=== PATIENT | female | born 1960 ===

== ENCOUNTER 2023-11-21 12:54 | Outpatient (AMB) | payer BC, SELFPAY ==
--- NOTE | 2023-11-21 12:58 | HO.SPINEOV ---
Vital Signs 11/21/23 13:02 Height 5 ft 8 in Weight 150 lb BMI 22.8 Intake Visit Reasons: cervical stenosis Intake Note: Ms. Wilkinson is here today c/o neck pain. [employer] Required: No Allergies propofol Allergy (Unknown, Verified 11/21/23 13:03) Unknown Physical Exam Vital Signs: BMI result Body Mass Index 22.8 Assessment & Plan Assessment & Plan (1) Pain in both forearms: Code(s): M79.632 - Pain in left forearm; M79.631 - Pain in right forearm Category: Medical Plan Dear colleague Thank you for referring Josi Stephenson to the office today with a chief complaint of burning arms. HPI: This 62-year-old female developed rather acute tingling that started on the right thumb and palm and then progressive both forearms and elbow areas the symptoms started in February of 2023. The areas are sensitive to pressure touch and has a constant burning and stinging sensations. The symptoms disturb her sleep. She recently had an asthma exacerbation and used prednisone which improved her symptoms. Currently they are returning after discontinuing the prednisone. In 2009 she developed acute numbness and weakness in her left arm that lasted for approximately 2 years and then resolved. PMH: Asthma, hypercholesterolemia, GERD Medications: Albuterol fluticasone, omeprazole, Restasis, rosuvastatin 10, diltiazem, Symbicort Allergies: Propofol Social history: Physical Exam: Pleasant female. Cranial nerves are intact. Motor exam is intact. She has subjective dysesthesias on the ventral side of her elbows. Normal reflexia. No pathological reflexes Radiological Studies: MRI done at [facility] on 07/12/2023 shows no spinal cord compression. There are diffuse mild degenerative changes causing multilevel foraminal stenosis Impression/Plan: This patient is suffering from this is dysesthesia of the bilateral arms, read her right side is more affected than the left side. I do not see a surgical cause for this on the cervical MRI. I referred her back to the neurologist. Thank you for allowing me to participate in your patients care. total time spent was 35 minutes in counseling ,coordination of plan, personal review of imaging, surgical decision making and subsequent plan Jared Spangler MD, PhD [facility] Trained Neurosurgeon Director, [facility] Coding Level of Care Code New Pt Level 3 (21615) Diagnoses Pain in both forearms M79.632; M79.631
[2023-11-21 13:02] VITALS: BMI 22.8
== END 2023-11-21 14:46 | disposition home or self-care (01) ==
PROVIDERS: Referring Provider Psychiatry & Neurology Neurology; Visit Provider Neurological Surgery
DX: M79.632 Pain in left forearm (principal); M79.631 Pain in right forearm
CPT/HCPCS: 99203

== ENCOUNTER → 2023-11-21 12:54 | Outpatient (BNVA) | payer BC, SELFPAY | PROVIDERS: Visit Provider Neurological Surgery ==